=== PATIENT | male | born 1980 | race Caucasian/White ===

== ENCOUNTER 2017-01-13 20:40 | Emergency (ER) | payer MEDICAID ==
[~2017-01-13] VITALS: Ht 180.3 cm; Wt 98.0 kg
[2017-01-13] MEDS ORDERED: KETOROLAC 30MG/ML VIAL IM ONE (23:45)
[2017-01-14] MEDS ORDERED: COLCHICINE 0.6MG TABLET PO ONE (01:15)
[2017-01-14 01:58] VITALS: BP 122/77
== END 2017-01-14 02:42 | disposition home or self-care (01) ==
LOC: ER 21:06
DX: M10.9 Gout, unspecified (principal)
CPT/HCPCS: 36415; 84550; 96372; 99283; J1885; Z7610

== ENCOUNTER 2017-06-30 21:00 | Emergency (ER) | payer MEDICAID ==
[~2017-06-30] VITALS: Ht 180.3 cm; Wt 92.0 kg
[2017-06-30 21:08] VITALS: BP 154/79
== END 2017-06-30 23:35 | disposition left against medical advice (07) ==
LOC: ER 21:00
DX: Z53.21 Procedure and treatment not carried out due to patient leaving prior to being seen by health care provider (principal)